=== PATIENT | female | born 1995 | race African-American/Black ===

== ENCOUNTER 2020-04-19 20:13 | Emergency (ER) | payer SELFPAY ==
--- NOTE | 2020-04-19 20:59 | ER Document Report ---
ED Medical Screen (RME) - General Chief Complaint: Leg Pain Stated Complaint: PAIN IN RIGHT THIGH Time Seen by Provider: 04/19/20 20:51 Notes: Patient is a 25-year-old female who presents the emergency department with a chief complaint of right lower extremity pain. She states that her pain started in her right thigh and now she feels like it is spreading to her knee and calf. Her symptoms started 2 days ago. She does not take control. She denies any long car rides. Denies history of smoking Exam: Tenderness noted to right leg. I have greeted and performed a rapid initial assessment of this patient. A comprehensive ED assessment and evaluation of the patient, analysis of test results and completion of medical decision making process will be conducted by an additional ED providers. - Related Data Allergies/Adverse Reactions: No Known Allergies Allergy (Unverified 04/19/20 20:55) Past Medical History - Social History Chew tobacco use (# tins/day): No Frequency of alcohol use: None Drug Abuse: None Physical Exam - Vital signs Vitals: Temp Pulse Resp BP Pulse Ox 98.4 F 100 16 119/77 98 04/19/20 20:21 04/19/20 20:21 04/19/20 20:21 04/19/20 20:21 04/19/20 20:21 Course - Vital Signs Vital signs: Temp Pulse Resp BP Pulse Ox 98.4 F 100 16 119/77 98 04/19/20 20:51 04/19/20 20:21 04/19/20 20:21 04/19/20 20:21 04/19/20 20:21
--- NOTE | 2020-04-19 22:32 | RADIOLOGY REPORT (SQ) ---
US LOWER EXTREMITY VEINS HISTORY: Leg pain and swelling. COMPARISON: None. TECHNIQUE: Grayscale, color Doppler, and spectral Doppler images of the right lower extremity were performed. FINDINGS: There is predominantly peripheral echogenic thrombus along the bolivar of the right mid femoral vein extending distally into the popliteal vein. There is partial compression of these vessels along with decreased color Doppler blood flow. This is consistent with a chronic nonocclusive thrombus. IMPRESSION: Likely chronic nonocclusive thrombus in the right mid femoral vein extending to the popliteal vein.
[2020-04-20] MEDS ORDERED: RIVAROXABAN 15 MG TABLET PO ONE (01:00)
[2020-04-20] MEDS ORDERED: HYDROCODONE/ACETAMINOPHEN 5-325 MG (6 TAB/ER DISP) PO PRN (01:01)
[2020-04-20] MEDS ORDERED: RIVAROXABAN 15 MG TABLET ONE (01:37)
--- NOTE | 2020-04-20 02:22 | ER Document Report ---
ED General - General Chief Complaint: Leg Pain Stated Complaint: PAIN IN RIGHT THIGH Time Seen by Provider: 04/19/20 20:51 Mode of Arrival: Ambulatory Information source: Patient Notes: place notes patient is a 25-year-old female who presents the emergency department with a chief complaint of right lower extremity pain. She states that her pain started in her right thigh and now she feels like it is spreading to her knee and calf. Her symptoms started 2 days ago. She does not take control. She denies any long car rides. Denies history of smoking Exam: Tenderness noted to right leg. my notes 25-year-old black female arrives with a one-week history of right anterior knee and medial knee and posterior knee pain which was worse over the last 2 days. The patient's mother happened to call as I was examining the patient and mother is named Mustapha and she was in [facility] and was advising that her niece just recently from a pulmonary embolism. Patient denies any fever chills cough or cold long-distance driving prolonged sitting scuba diving [email or web address] airplane flights or history of any kind of blood clots or pulmonary emboli. - HPI Onset: Last week Onset/Duration: Sudden, Persistent, Worse Quality of pain: Achy Severity: Mild Pain Level: 2 Associated symptoms: Leg swelling Exacerbated by: Movement Relieved by: Denies Similar symptoms previously: No Recently seen / treated by doctor: No - Related Data Allergies/Adverse Reactions: No Known Allergies Allergy (Unverified 04/19/20 20:55) Past Medical History - General Information source: Patient - Social History Smoking Status: Never Smoker Cigarette use (# per day): No Chew tobacco use (# tins/day): No Smoking Education Provided: No Frequency of alcohol use: None Drug Abuse: None Lives with: Alone Family History: Reviewed & Not Pertinent Patient has homicidal ideation: No Review of Systems - Review of Systems Constitutional: No symptoms reported EENT: No symptoms reported Cardiovascular: No symptoms reported Respiratory: No symptoms reported Gastrointestinal: No symptoms reported Genitourinary: No symptoms reported Female Genitourinary: No symptoms reported Musculoskeletal: See HPI, Joint swelling, Muscle stiffness, Leg swelling Skin: No symptoms reported Hematologic/Lymphatic: No symptoms reported Neurological/Psychological: No symptoms reported Physical Exam - Vital signs Vitals: Temp Pulse Resp BP Pulse Ox 98.4 F 100 16 119/77 98 04/19/20 20:21 04/19/20 20:21 04/19/20 20:21 04/19/20 20:21 04/19/20 20:21 Interpretation: Normal - General General appearance: Appears well - HEENT Head: Normocephalic Eyes: Normal Conjunctiva: Normal Cornea: Normal Pupils: PERRL Nasal: Normal Mouth/Lips: Normal Mucous membranes: Normal Pharynx: Normal Neck: Normal - Respiratory Respiratory status: No respiratory distress Chest status: Nontender Breath sounds: Normal Chest palpation: Normal - Cardiovascular Rhythm: Regular Heart sounds: Normal auscultation Murmur: No - Abdominal Inspection: Normal Distension: No distension Bowel sounds: Normal Tenderness: Nontender Organomegaly: No organomegaly - Rectal Hemorrhoids: Other - deferred - Genitourinary Speculum exam: Other - deferred - Back Back: Normal - Extremities General upper extremity: Normal inspection, Nontender, Normal color, Normal ROM, Normal temperature General lower extremity: Normal inspection, Tender, Edema, Normal color, Normal ROM, Normal weight bearing, Other - tener right patella and prepatellar prepatellar bursa edema and tender popliteal area and pos Homans with medial cord noted. No: Von's sign Course - Vital Signs Vital signs: Temp Pulse Resp BP Pulse Ox 98.6 F 63 14 133/91 H 100 04/20/20 00:08 04/20/20 00:08 04/20/20 00:08 04/20/20 00:08 04/20/20 00:08 Critical Care Note - Critical Care Note Total time excluding time spent on procedures (mins): 90 Comments: I spoke with patient about her findings for positive DVT and also with her mother via telephone. Patient's mother lives in [place]. They appear to understand diagnosis and treatment Discharge - Discharge Clinical Impression: DVT (deep venous thrombosis) Qualifiers: DVT location: lower extremity Affected thrombotic vein of extremity: unspecified vein of extremity Chronicity: acute Laterality: right Qualified Code(s): I82.401 - Acute embolism and thrombosis of unspecified deep veins of r ight lower extremity Condition: Good Disposition: HOME, SELF-CARE Additional Instructions: Follow-up with personal doctor within 1 to 2 weeks return to ER as needed if symptoms worsen or persist take medicine as directed. You will take Xarelto 15 mg twice a day for 3 weeks and then 20 mg daily for least 1 year and if severe enough for a lifetime. We have drawn laboratory tests tonight for your doctor to [facility] after they are completed they should be done within the next few days. Prescriptions: Rivaroxaban [Xarelto 15 mg Tablet] 15 mg PO BID 21 Days #42 tablet Forms: Return to Work
[2020-04-20 03:37] VITALS: BP 112/77
[2020-04-20 03:53] LABS: ABSOLUTE EOSINOPHILS # (AUTO) 0.1 10^3/uL (0.0-0.6); ABSOLUTE LYMPHOCYTES (AUTO) 3.7 10^3/uL (0.5-4.7); ABSOLUTE MONOCYTES (AUTO) 0.3 10^3/uL (0.1-1.4); ABSOLUTE NEUT (AUTO) 4.3 10^3/uL (1.7-8.2); BASOPHILS % (AUTO) 0.4 % (0-2); EOSINOPHILS % (AUTO) 1.2 % (0-6); HEMATOCRIT 38.2 % (36.0-47.0); HEMOGLOBIN 12.8 g/dL (12.0-15.5); LYMPHOCYTES % (AUTO) 43.7 % (13-45); MEAN CORPUSCULAR HEMOGLOBIN 29.2 pg (27.0-33.4); MEAN CORPUSCULAR HGB CONC 33.5 g/dL (32.0-36.0); MEAN CORPUSCULAR VOLUME 87 fl (80-97); PLATELET COUNT 265 10^3/uL (150-450); RED BLOOD COUNT 4.37 10^6/uL (3.72-5.28); RED CELL DISTRIBUTION WIDTH 13.9 % (11.5-14.0); SEGMENTED NEUTROPHILS % (AUTO) 50.7 % (42-78); TOTAL CELLS COUNTED % (AUTO) 100 %; WHITE BLOOD COUNT 8.5 10^3/uL (4.0-10.5)
[2020-04-20 04:06] LABS: ALBUMIN 4.5 g/dL (3.5-5.0); ALKALINE PHOSPHATASE 72 U/L (38-126); ANION GAP 6 (5-19); ASPARTATE AMINO TRANSFERASE 28 U/L (14-36); BILIRUBIN,TOTAL 0.4 mg/dL (0.2-1.3); BLOOD UREA NITROGEN 10 mg/dL (7-20); CALCIUM 9.6 mg/dL (8.4-10.2); CARBON DIOXIDE 24 mmol/L (22-30); CHLORIDE 108 mmol/L (98-107); GLUCOSE 88 mg/dL (75-110); POTASSIUM 4.4 mmol/L (3.6-5.0); TOTAL PROTEIN 7.8 g/dL (6.3-8.2)
[2020-04-20 04:13] LABS: INTERNATIONAL RATION (INR) 1.84; PROTHROMBIN TIME 21.5 SEC (11.4-15.4)
== END 2020-04-20 03:45 | disposition home or self-care (01) ==
LOC: ER 20:13
DX: I82.401 Acute embolism and thrombosis of unspecified deep veins of right lower extremity (principal); M79.604 Pain in right leg; M79.651 Pain in right thigh; M25.561 Pain in right knee
CPT/HCPCS: 36415; 80053; 85025; 85220; 85300; 85303; 85305; 85306; 85610; 85730; 93971; 99285

== ENCOUNTER 2020-04-23 13:35 | Emergency (ER) | payer SELFPAY ==
[2020-04-23 14:30] LABS: ABSOLUTE EOSINOPHILS # (AUTO) 0.1 10^3/uL (0.0-0.6); ABSOLUTE LYMPHOCYTES (AUTO) 2.6 10^3/uL (0.5-4.7); ABSOLUTE MONOCYTES (AUTO) 0.3 10^3/uL (0.1-1.4); ABSOLUTE NEUT (AUTO) 4.9 10^3/uL (1.7-8.2); BASOPHILS % (AUTO) 0.5 % (0-2); EOSINOPHILS % (AUTO) 0.9 % (0-6); HEMATOCRIT 36.6 % (36.0-47.0); HEMOGLOBIN 12.3 g/dL (12.0-15.5); LYMPHOCYTES % (AUTO) 33.1 % (13-45); MEAN CORPUSCULAR HEMOGLOBIN 29.1 pg (27.0-33.4); MEAN CORPUSCULAR HGB CONC 33.5 g/dL (32.0-36.0); MEAN CORPUSCULAR VOLUME 87 fl (80-97); MONOCYTES % (AUTO) 4.3 % (3-13); PLATELET COUNT 270 10^3/uL (150-450); RED BLOOD COUNT 4.21 10^6/uL (3.72-5.28); RED CELL DISTRIBUTION WIDTH 13.8 % (11.5-14.0); SEGMENTED NEUTROPHILS % (AUTO) 61.2 % (42-78); TOTAL CELLS COUNTED % (AUTO) 100 %
[2020-04-23 14:54] LABS: ALBUMIN 4.6 g/dL (3.5-5.0); ALKALINE PHOSPHATASE 78 U/L (38-126); ANION GAP 8 (5-19); ASPARTATE AMINO TRANSFERASE 30 U/L (14-36); BILIRUBIN,TOTAL 0.4 mg/dL (0.2-1.3); BLOOD UREA NITROGEN 10 mg/dL (7-20); CARBON DIOXIDE 26 mmol/L (22-30); CHLORIDE 104 mmol/L (98-107); GLUCOSE 93 mg/dL (75-110); POTASSIUM 4.3 mmol/L (3.6-5.0); TOTAL PROTEIN 7.9 g/dL (6.3-8.2)
--- NOTE | 2020-04-23 15:55 | RADIOLOGY REPORT (SQ) ---
EXAM DESCRIPTION: CTA CHEST IMAGES COMPLETED DATE/TIME: 04/23/2020 3:37 pm REASON FOR STUDY: sob dizzy COMPARISON: None. TECHNIQUE: CT scan of the chest performed using helical scanning technique with dynamic intravenous contrast injection. Images reviewed with lung, soft tissue and bone windows. Reconstructed coronal and sagittal MPR images reviewed. Additional 3 dimensional post-processing performed to develop Maximal Intensity Projection images (SC P). All images stored on PACS. All CT scanners at this facility use dose modulation, iterative reconstruction, and/or weight based d osing when appropriate to reduce radiation dose to as low as reasonably achievable (ALARA). [facility]: Dose Right [facility]: CareDose [facility]: Dose Right [facility]: Teradose 4D [facility]: WhoJam CONTRAST TYPE AND DOSE: 65 mL Omnipaque 350- low osmolar. Contrast bolus optimized for the pulmonary arteries. RENAL FUNCTION: GFR > 60. RADIATION DOSE: CT Rad equipment meets quality standard of care and radiation dose reduction techniq ues were employed. CTDIvol: 18.1 - 19.8 mGy. DLP: 634 mGy-cm. LIMITATIONS: None. FINDINGS: LUNGS AND PLEURA: The trachea and main bronchi are patent. There is no consolidation, joe und-glass opacification, pleural effusion or pneumothorax. AORTA AND GREAT VESSELS: There is a variant 4 vessel arch with a direct origin of the left vertebral artery from the arch. There is no thoracic aortic dissection or aneurysm. HEART: No cardiomegaly or pericardial effusion. PULMONARY ARTERIES: There is no central or segmental pulmonary embolus. Evaluation of the subsegment al branches of the pulmonary arteries is limited due respiratory motion. HILAR AND MEDIASTINAL STRUCTURES: The soft tissue in the anterior mediastinum likely represents resid ual thymus. There is no mediastinal or hilar adenopathy. HARDWARE: None in the chest. UPPER ABDOMEN: Cholecystectomy clips and pneumobilia. THYROID AND OTHER SOFT TISSUES: No mass or adenopathy. BONES: No acute fracture or osseous lesion. 3D MIPS: Confirm above findings. OTHER: No other finding. IMPRESSION: 1. No central or segmental pulmonary embolus. Evaluation of the subsegmental branches of the pulmonary arteries is limited due to respiratory motion. 2. Cholecystectomy clips and pneumobilia. COMMENT: Quality ID # [id number]: Final reports with documentation of one or more dose reduction techniques (e.g., Automated exposure control, adjustment of the mA and/or kV according to patient size, use of iterative reconstruction technique) TECHNICAL DOCUMENTATION: JOB ID: [id number] 2010 [email or web address]- All Rights Reserved Reading location - IP/workstation name: [email or web address]
--- NOTE | 2020-04-23 18:24 | ER Document Report ---
ED General - General Chief Complaint: Chest Pain Stated Complaint: CHEST PAIN Time Seen by Provider: 04/23/20 14:02 Mode of Arrival: Ambulatory Information source: Patient - HPI Notes: Patient complains of chest heaviness and right arm "feeling funny". She denies any shortness of breath cough cold or congestion. The chest heaviness is been intermittent. Nothing makes it better or worse. No radiation of the symptoms. She was recently diagnosed with a DVT in the right lower extremity approximately 3 to 4 days ago. She started Xarelto approximately 3 days ago. She states she is noticed that this is made her menstruations heavier and she has had some gum bleeding as well. - Related Data Allergies/Adverse Reactions: No Known Allergies Allergy (Unverified 04/19/20 20:55) Home Medications: xarelto Past Medical History - General Information source: Patient - Social History Smoking Status: Never Smoker Frequency of alcohol use: None Drug Abuse: None Family History: Reviewed & Not Pertinent Review of Systems - Review of Systems Constitutional: denies: Chills, Fever Cardiovascular: Chest pain - Heaviness. denies: Palpitations Respiratory: denies: Cough, Short of breath Physical Exam - Vital signs Vitals: Temp Pulse Resp BP Pulse Ox 98.5 F 89 20 114/80 99 04/23/20 13:44 04/23/20 13:44 04/23/20 13:44 04/23/20 13:44 04/23/20 13:44 Interpretation: Normal - General General appearance: Appears well, Alert - HEENT Head: Normocephalic, Atraumatic Eyes: Normal Pupils: PERRL - Respiratory Respiratory status: No respiratory distress Chest status: Nontender Breath sounds: Normal Chest palpation: Normal - Cardiovascular Rhythm: Regular Heart sounds: Normal auscultation Murmur: No - Abdominal Inspection: Normal Distension: No distension Bowel sounds: Normal Tenderness: Nontender Organomegaly: No organomegaly - Back Back: Normal, Nontender - Extremities General upper extremity: Normal inspection, Nontender, Normal color, Normal ROM, Normal temperature General lower extremity: Normal inspection, Nontender, Normal color, Normal ROM, Normal temperature, Normal weight bearing. No: Von's sign - Neurological Neuro grossly intact: Yes Cognition: Normal Orientation: AAOx4 Barb Coma Scale Eye Opening: Spontaneous Barb Coma Scale Verbal: Oriented Barb Coma Scale Motor: Obeys Commands [place] Coma Scale Total: 15 Speech: Normal Motor strength normal: LUE, RUE, LLE, RLE Sensory: Normal - Psychological Associated symptoms: Normal affect, Normal mood - Skin Skin Temperature: Warm Skin Moisture: Dry Skin Color: Normal Course - Re-evaluation Re-evalutation: 04/23/20 18:23 Patient presents with some chest heaviness. She was recently diagnosed with a DVT. CTA shows no evidence of pulmonary embolism. I think patient's symptoms are mainly due to anxiety. The excessive bleeding is obviously due to the Xarelto. I have discussed with patient the results of her blood test that were drawn approximately 3 days ago consisting of protein S, protein C and some other labs. I have informed her that these are still pending and that she will need to have her family physician call over to receive the results of these in several days. - Vital Signs Vital signs: Temp Pulse Resp BP Pulse Ox 98.5 F 89 12 117/99 H 100 04/23/20 13:44 04/23/20 13:44 04/23/20 16:11 04/23/20 16:11 04/23/20 16:11 - Laboratory Result Diagrams: 04/23/20 14:10 04/23/20 14:10 - Diagnostic Test Radiology reviewed: Image reviewed, Reports reviewed - EKG Interpretation by Me EKG shows normal: Sinus rhythm Rate: Normal - 82 Rhythm: NSR [place]/QRS: No: Right axis deviation, Left axis deviation Discharge - Discharge Clinical Impression: Anxiety Chest pain Qualifiers: Chest pain type: unspecified Qualified Code(s): R07.9 - Chest pain, unspecified DVT (deep venous thrombosis) Qualifiers: DVT location: lower extremity Affected thrombotic vein of extremity: femoral Chronicity: chronic Laterality: right Qualified Code(s): I82.511 - Chronic embolism and thrombosis of right femoral vein Condition: Stable Disposition: HOME, SELF-CARE Instructions: Chest Pain of Unclear Cause ([facility]) Additional Instructions: Please have your primary care physician call to receive your medical records to find the results of your testing. Your blood tests are still pending and will not be back for several more days. Forms: Return to Work Referrals: [facility] [Provider Group] - Follow up in 3-5 days
[2020-04-23 19:37] VITALS: BP 120/84
--- NOTE | 2020-04-24 13:20 | EKG REPORT ---
SEVERITY:- NORMAL ECG - SINUS RHYTHM : Confirmed by: Luis F Monte 24-Apr-2020 13:19:41
== END 2020-04-23 19:36 | disposition home or self-care (01) ==
LOC: ER 13:35
DX: I82.511 Chronic embolism and thrombosis of right femoral vein (principal); R07.9 Chest pain, unspecified; F41.9 Anxiety disorder, unspecified; Z79.02 Long term (current) use of antithrombotics/antiplatelets
CPT/HCPCS: 36415; 71275; 80053; 84484; 84703; 85025; 93005; 93010; 99285